=== PATIENT | male | born 1985 | race African-American/Black ===

== ENCOUNTER 2018-08-02 16:06 | Emergency (ER) | payer BC, OTHER ==
[2018-08-02] MEDS ORDERED: AZITHROMYCIN 500 MG TABLET PO ONE (16:11)
[2018-08-02 16:23] VITALS: BP 167/90; PULSE 81; TEMP 98.2; BMI 28.1
--- NOTE | 2018-08-02 16:32 | PDOC ---
History of Present Illness - General Chief Complaint: Pain Stated Complaint: STD TESTING Time Seen by Provider: 08/02/18 16:10 History Source: Patient Exam Limitations: No Limitations - History of Present Illness Initial Comments: 08/02/18 16:38 33m coming after girlfriend tested positive for chlamydia today. She tested negative for all other STD's. He wishes to be tested and treated empirically. Patient is completely asymptomatic. Denies fever, rash, pruritus, discharge. 08/02/18 16:41 Past History - Past Medical History Allergies/Adverse Reactions: Allergies Allergy/AdvReac Type Severity Reaction Status Date / Time No Known Allergies Allergy Verified 08/02/18 16:08 Home Medications: Ambulatory Orders NK [No Known Home Medication] 08/02/18 COPD: No - Immunization History TDAP Vaccination: No - Suicide/Smoking/Psychosocial Hx Smoking History: Never smoked Have you smoked in the past 12 months: No Information on smoking cessation initiated: No Hx Alcohol Use: No Drug/Substance Use Hx: No Substance Use Type: Alcohol, Marijuana Review of Systems - Review of Systems Able to Perform ROS?: Yes Is the patient limited Danish proficient: No Constitutional: No: Symptoms Reported HEENTM: No: Symptoms Reported Respiratory: No: Symptoms reported Cardiac (ROS): No: Symptoms Reported ABD/GI: No: Symptoms Reported : No: Symptoms Reported Musculoskeletal: No: Symptoms Reported Integumentary: No: Symptoms Reported Neurological: No: Symptoms reported All Other Systems: Reviewed and Negative *Physical Exam - Vital Signs Last Vital Signs Temp Pulse Resp BP Pulse Ox 98.2 F 81 20 167/90 100 08/02/18 16:08 08/02/18 16:08 08/02/18 16:08 08/02/18 16:08 08/02/18 16:08 - Physical Exam General Appearance: Yes: Nourished, Appropriately Dressed. No: Apparent Distress HEENT: positive: EOMI, AMINATA, Normal ENT Inspection Respiratory/Chest: positive: Lungs Clear, Normal Breath Sounds. negative: Chest Tender, Respiratory Distress Cardiovascular: positive: Regular Rhythm, Regular Rate, S1, S2 Male Genitalia: positive: normal genitalia. negative: discharge Moderate Sedation - Procedure Monitoring Vital Signs: Procedure Monitoring Vital Signs Temperature 98.2 F 08/02/18 16:08 Pulse Rate 81 08/02/18 16:08 Respiratory Rate 20 08/02/18 16:08 Blood Pressure 167/90 08/02/18 16:08 O2 Sat by Pulse Oximetry (%) 100 08/02/18 16:08 Medical Decision Making - Medical Decision Making 08/02/18 16:41 GC/Chlamydia tested by urethral swab. Willl get call back. Treated empirically with Azithromycin and ceftriaxone. *DC/Admit/Observation/Transfer Diagnosis at time of Disposition: STD (male) - Discharge Dispostion Disposition: HOME Condition at time of disposition: Improved Decision to Admit order: No - Referrals Schedule a call back: Call back for STD results. - Patient Instructions Printed Discharge Instructions: Chlamydia: The Silent STD, How to Detect and Treat STDs Additional Instructions: Come back to the Ed for any new, worsening or concerning symptom. You will get a call back with results. Follow up with primary care provider for test of cure. - Post Discharge Activity
[2018-08-02] MEDS ORDERED: AZITHROMYCIN 250 MG TABLET ONE (16:39)
--- NOTE | 2018-08-02 16:41 | PDOC ---
Attending Attestation - Resident Resident Name: [email or web address] - ED Attending Attestation I have performed the following: I have examined & evaluated the patient, The case was reviewed & discussed with the resident, I agree w/resident's findings & plan, Exceptions are as noted - HPI HPI: 08/02/18 16:38 33yo male presents for STI testing. His girlfriend tested positive this AM for chlamydia. Pt denies all complaints. No penile discharge. No abd pain. No rashes. No lesions. No testicular pain. No ulcers. No f/c. No somatic complaints. Requests treatment for STI exposure. - Physicial Exam PE: 08/02/18 16:39 Gen: aaox3, nad heart: +s1s2 reg lungs: cta b/l abd: soft, nt/nd +bs ext: no c/c/e - Medical Decision Making 08/02/18 16:38 I, Dr. Rita Rodriguez, DO, attest that this document has been prepared under my direction and personally reviewed by me in its entirety. I further attest, that it accurately reflects all work, treatment, procedures and medical decision -making performed by me. 08/02/18 16:40 a/p: 33yo male with sti exposure requesting testing and treatment -will send urethral swab, swabbed by the resident -rocephin 250mg IM -azithromycin 1g oral -discussed resutls will not come abck today discussed the importance of condoms for preventing STI transmission -answered all questions.
== END 2018-08-02 16:57 | disposition home or self-care (01) ==
LOC: FER 16:06
DX: Z11.3 Encounter for screening for infections with a predominantly sexual mode of transmission (principal)
CPT/HCPCS: 36415; 87491; 87591; 99281-25